=== PATIENT | female | born 1955 | race Caucasian/White ===

== ENCOUNTER 2017-08-24 10:32 | Emergency (ER) | payer OTHER ==
[~2017-08-24] VITALS: Ht 152.4 cm; Wt 67.0 kg
[2017-08-24 11:11] VITALS: BP 187/86; PULSE 98; RESP 16; TEMP 97.6; O2SAT 96
[2017-08-24] MEDS ORDERED: PRED20 PO (12:29)
[2017-08-24] MEDS ORDERED: AZIT250T3 PO (12:29)
--- NOTE | 2017-08-24 12:30 | PD ---
HPI Chief Complaint: Cold / Flu Symptoms Time Seen by Provider: 12:24 Travel History International Travel<30 days: No Contact w/Intl Traveler<30days: No Traveled to known affect area: No History of Present Illness HPI 62-year-old female here with cough 4 weeks. She has associated shortness of breath and wheezing intermittently. She reports symptoms are mildly improved with her albuterol inhaler. Symptoms originally started as URI-like symptoms with nasal congestion, sore throat, cough. She denies chest pain. She has a history of reactive airway. Symptom severity is moderate. PFSH Past Medical History COPD: Yes Respiratory: Yes (?copd ) Tetanus Vaccination: > 5 Years Influenza Vaccination: Yes ?: Not Tubal Ligation: Yes Past Surgical History Gynecologic Surgery: Yes (UTERINE ABLASTION) Social History Alcohol Use: Yes (1 GLASS WINE NIGHTLY) Tobacco Use: Yes (VAPER) Substance Use: No Allergies-Medications (Allergen,Severity, Reaction): Coded Allergies: No Known Allergies (Unverified , 08/24/17) Reported Meds & Prescriptions Reported Meds & Active Scripts Active No Active Prescriptions or Reported Medications Review of Systems Except as stated in HPI: all other systems reviewed are Neg Physical Exam Narrative GENERAL: Alert well-appearing appearing female. SKIN: Warm and dry. HEAD: Normocephalic. EYES: No scleral icterus. No injection or drainage. NECK: Supple, trachea midline. No JVD or lymphadenopathy. CARDIOVASCULAR: Regular rate and rhythm without murmurs, gallops, or rubs. RESPIRATORY: Breath sounds equal bilaterally. No accessory muscle use. Mild expiratory wheezes bilaterally. GASTROINTESTINAL: Abdomen soft, non-tender, nondistended. MUSCULOSKELETAL: No cyanosis, or edema. BACK: Nontender without obvious deformity. No CVA tenderness. Data Data Last Documented VS Vital Signs Date Time Temp Pulse Resp B/P (MAP) Pulse Ox O2 Delivery O2 Flow Rate FiO2 08/24/17 11:20 Room Air 08/24/17 11:11 97.6 98 16 187/86 (119) 96 MDM Medical Decision Making Medical Screen Exam Complete: Yes Emergency Medical Condition: Yes Differential Diagnosis Bronchitis, pneumonia, reactive airway Narrative Course 62-year-old female with cough 4 weeks. She is reporting episodes of mild shortness of breath and wheezing. On exam she has mild expiratory wheezes. Her vital signs are stable. She is nontoxic appearing. No respiratory distress. Patient will be treated for bronchitis with reactive airway. Diagnosis Primary Impression: Bronchitis Additional Impression: Reactive airway disease Qualified Codes: J45.909 - Unspecified asthma, uncomplicated Referrals: Primary Care Physician Scripts Prednisone (Prednisone) 20 Mg Tab 40 MG PO DAILY, #10 TAB 0 Refills Take 40 mg (2 tablets) daily for 5 days Prov: Bindu Rosas 08/24/17 Azithromycin (Azithromycin) 250 Mg Tab 250 MG PO DIRECTED for Infection, #6 TAB 0 Refills Take 2 tabs (500 mg) on day 1 then 1 tab daily x 4 days. Prov: Bindu Rosas 08/24/17 Disposition: 01 DISCHARGE HOME Condition: Stable Bindu Rosas Aug 24, 2017 12:30
== END 2017-08-24 12:43 | disposition home or self-care (01) ==
LOC: PHEFT 10:32
DX: J40 Bronchitis, not specified as acute or chronic (principal); J45.909 Unspecified asthma, uncomplicated; R09.81 Nasal congestion; R07.0 Pain in throat; Z72.0 Tobacco use; Z87.09 Personal history of other diseases of the respiratory system; Z72.89 Other problems related to lifestyle
CPT/HCPCS: 99284